=== PATIENT | male | born 2000 | race Hispanic/Latino ===

== ENCOUNTER 2020-04-08 16:31 | Emergency (ER) | payer OTHER ==
[2020-04-08] MEDS ORDERED: hydrOXYzine 25 MG TAB ONE (16:52)
[2020-04-08] MEDS ORDERED: Mag-Al 1200 mg/1200 mg/30 ML UDCUP ONE (16:58)
[2020-04-08] MEDS ORDERED: Lidocaine Viscous Sol 2% 15 ml UD Cup ONE (16:58)
--- NOTE | 2020-04-08 17:26 | RAD ---
Exam: Chest one view HISTORY:Pain. Comparison: None FINDINGS: Cardiac silhouette: Normal Aorta: Unremarkable Pulmonary vessels: Normal Costophrenic angles: Clear LUNGS: No masses or consolidation. Pneumothorax: None Osseous abnormalities: None IMPRESSION: No acute cardiopulmonary process.
== END 2020-04-08 18:01 | disposition home or self-care (01) ==
LOC: ERS 16:31
DX: K21.9 Gastro-esophageal reflux disease without esophagitis (principal); F17.290 Nicotine dependence, other tobacco product, uncomplicated
CPT/HCPCS: 71045; 93005